=== PATIENT | female | born 1980 | race Caucasian/White ===

== ENCOUNTER 2017-06-20 13:01 | Emergency (ER) | payer OTHER ==
[~2017-06-20] VITALS: Ht 167.6 cm; Wt 74.4 kg
[2017-06-20] MEDS ORDERED: CLINDAMYCIN HC300 MG PO (16:15)
== END 2017-06-20 16:28 | disposition home or self-care (01) ==
LOC: ED 13:01
DX: J03.00 Acute streptococcal tonsillitis, unspecified (principal)
CPT/HCPCS: 80053; 81001; 83605; 85025; 86308; 87880; 96365; 96375; 99283; J1100; J1885; J2405; J3490; J7030